=== PATIENT | male | born 1985 | race American Indian/Alaskan Native ===

== ENCOUNTER 2018-02-15 23:12 | Emergency (ER) | payer MEDICAID ==
[2018-02-15 23:25] VITALS: RESP 16
[2018-02-16 01:40] VITALS: BP 139/78; PULSE 63; TEMP 98.7; O2SAT 98
--- NOTE | 2018-02-16 02:32 | ED PDOC ---
HPI: General Adult Time Seen by Provider: 02/15/18 23:33 Chief Complaint (Nursing): Medical Clearance History Per: Patient, Other ([employer]) Onset/Duration Of Symptoms: Hrs Current Symptoms Are (Timing): Still Present Additional Complaint(s): Patient was brought by eval for medical and psychiatric clearance for [facility]. Patient denies SI/HI, drug or alcohol abuse today. Patient was reported to not be oriented earlier, but currently now oriented and alert, approrpiate. States he suffers from allergies and has nasal congestion. Denies any other complaints. Past Medical History Reviewed: Historical Data, Nursing Documentation, Vital Signs Vital Signs: Last Vital Signs Temp 98.7 F 02/16/18 01:39 Pulse 63 02/16/18 01:39 Resp 16 02/16/18 01:39 BP 139/78 02/16/18 01:39 Pulse Ox 98 02/16/18 02:32 - Family History Family History: States: Unknown Family Hx - Allergies Allergies/Adverse Reactions: Allergies Allergy/AdvReac Type Severity Reaction Status Date / Time No Known Allergies Allergy Verified 02/15/18 23:25 Review of Systems ROS Statement: Except As Marked, All Systems Reviewed And Found Negative ENT: Positive for: Nose Congestion Physical Exam - Reviewed Nursing Documentation Reviewed: Yes Vital Signs Reviewed: Yes - Physical Exam Appears: Positive for: Well, Non-toxic, No Acute Distress Head Exam: Positive for: ATRAUMATIC, NORMAL INSPECTION, NORMOCEPHALIC Skin: Positive for: Normal Color, Warm, DRY Eye Exam: Positive for: EOMI, Normal appearance, PERRL ENT: Positive for: Normal ENT Inspection Neck: Positive for: Normal, Painless ROM Cardiovascular/Chest: Positive for: Regular Rate, Rhythm Respiratory: Positive for: CNT, Normal Breath Sounds Gastrointestinal/Abdominal: Positive for: Normal Exam, Soft Back: Positive for: Normal Inspection Extremity: Positive for: Normal ROM Neurologic/Psych: Positive for: Alert, explosives truck driver II-XII, Oriented, Mood/Affect (normal ). Negative for: Motor/Sensory Deficits - ECG O2 Sat by Pulse Oximetry: 98 Medical Decision Making Medical Decision Makin A/P: Patient here for medical and psychiatric clearance. -Patient medically cleared -Pending crisis eval 430 Patient cleared by crisis with dx: of adjusmtnet disorder by dr. hunter. Disposition - Clinical Impression Clinical Impression: Adjustment disorder - Disposition Disposition: Discharged/Transfer to Law Enforcement Disposition Time: 04:29 Condition: STABLE Additional Instructions: Patient is medically and psychiatrically cleared for incarceration. Instructions: Adjustment Disorder Forms: [employer] (Bulgarian)
== END 2018-02-16 04:45 | disposition home or self-care (01) ==
LOC: H.ER 23:12
DX: F43.20 Adjustment disorder, unspecified (principal); Z02.89 Encounter for other administrative examinations; Z00.8 Encounter for other general examination